=== PATIENT | male | born 1970 | race Caucasian/White ===

== ENCOUNTER 2017-10-30 22:44 | Emergency (ER) | payer OTHER ==
[2017-10-30 23:19] LABS: PLATELET COUNT 333 10^3/uL (150-400)
--- NOTE | 2017-10-31 00:04 | EDPHY ---
General - History Smoking Status: Never smoked Time Seen by Provider: 10/30/17 23:49 Narrative: CHIEF COMPLAINT: M1 HISTORY OF PRESENT ILLNESS: Patient presents on M1 hold from the walk-in crisis Center from [facility]. He is here on an M1 hold due to reported suicidal ideation. The M1 documents that he was allegedly suicidal with a plan of "drinking myself to ." Patient adamantly denies this. He does states he has "been going through some crises," but denies feeling suicidal or homicidal. He denies any history of such or any formal mental health diagnoses. He does admit to going to [facility] at the request of his ex but will not divulge any further information. No obtainable associated complaints or modifying factors. PSYCHIATRIC DIAGNOSES: Denies PRIOR PSYCHIATRIC EVALUATIONS: Denies M1/DETAINER: [facility] walk in crisis [place] just prior to arrival REVIEW OF SYSTEMS: Ten systems reviewed and are negative unless otherwise noted in the HPI EXAMINATION General Appearance: Alert, no distress. Well-developed well-nourished. Head: normocephalic, atraumatic Eyes: Pupils equal and round, no conjunctival pallor or injection ENT, Mouth: Mucous membranes moist Neck: Normal inspection, supple, non-tender Respiratory: Lungs are clear to auscultation Cardiovascular: Regular rate and rhythm Gastrointestinal: Abdomen is soft and nontender Back: non-tender, no bony abnormalities Neurological: GCS 15. A&O, nonfocal, normal gait Skin: Warm and dry, no rash Extremities: Nontender, no pedal edema Psychiatric: Anxious Mood and affect. Denies suicidal ideation. Denies homicidal ideation. Does admit to alcohol use. Denies illicit substance use DIFFERENTIAL DIAGNOSES: Including but not limited to suicidal ideation, depression, acute on toxication , polysubstance abuse MDM: 11:50 p.m. M1 hold due to suicidal ideation with plan of alcohol ingestion per M1. The patient denies this. There is documentation that he had a plan of doing so, thus we will convince medical clearance. He has thus far cooperative. He is in no acute distress. He does admit to alcohol ingestion but denies any illicit substance use. The serum laboratory studies are pending. He has not yet provided a urine sample. 12:30 a.m. I discussed case with Dr. Mc. She will assume care the patient at this time. He is pending medical clearance and will likely be in the emergency department till the morning for psychiatric evaluation. Thus far he is resting comfortably in no acute distress and very cooperative to this point SUPERVISION: Patient was independently examined, but I discussed the case with my secondary supervising physician Dr. Mc (MagenChuy) PHYSICIAN DOCUMENTATION: The patient was evaluated and managed by the Physician Camp Cook. My co- signature indicates that I have reviewed this chart and I agree with the findings and plan of care as documented. I am the secondary supervising physician. 7:30 a.m., patient was stable throughout my shift. He is awaiting mental health evaluation pending his sobriety. (Stephanie Mc) Medical Decision Making: I assumed care of the patient at 7 o'clock in the morning pending psychiatric disposition. 9:00 a.m.: The patient has been evaluated by the psychiatric team at [facility] and the case discussed with Dr. Levon Wallace. They are recommending that the mental health hold the vacated as the patient currently contracts for safety. His primary issue is one surrounding his alcohol dependence. The patient will be discharged home with resources. He is given customary aftercare instructions and return precautions. (Danyel Martin) - Objective Vital Signs: Initial Vital Signs Temperature (C) 36.7 C 10/30/17 23:42 Heart Rate 111 H 10/30/17 23:42 Respiratory Rate 20 10/30/17 23:42 Blood Pressure 146/102 H 10/30/17 23:42 O2 Sat (%) 94 10/30/17 23:42 O2 Delivery Mode Room Air Allergies/Adverse Reactions: No Known Allergies Allergy (Unverified 10/30/17 23:42) Home Medications: Medication Instructions Recorded NK [No Known Home Meds] 10/30/17 Laboratory Results: Laboratory Results 10/30/17 23:05 10/30/17 23:05 10/31/17 10/30/17 10/30/17 00:05 23:05 23:05 WBC 9.39 10^3/uL 10^3/uL (3.80-9.50) RBC 5.45 10^6/uL 10^6/uL (4.40-6.38) Hgb 17.6 g/dL H g/dL (13.7-17.5) Hct 50.7 % % (40.0-51.0) MCV 93.0 fL fL (81.5-99.8) MCH 32.3 pg pg (27.9-34.1) MCHC 34.7 g/dL g/dL (32.4-36.7) RDW 11.9 % % (11.5-15.2) Plt Count 333 10^3/uL 10^3/uL (150-400) MPV 9.4 fL fL (8.7-11.7) Neut % (Auto) 44.2 % % (39.3-74.2) Lymph % (Auto) 44.7 % % (15.0-45.0) Alfalfa % (Auto) 6.5 % % (4.5-13.0) Eos % (Auto) 3.6 % % (0.6-7.6) Baso % (Auto) 0.7 % % (0.3-1.7) Nucleat RBC Rel Count 0.0 % % (0.0-0.2) Absolute Neuts (auto) 4.14 10^3/uL 10^3/uL (1.70-6.50) Absolute Lymphs (auto) 4.20 10^3/uL H 10^3/uL (1.00-3.00) Absolute Monos (auto) 0.61 10^3/uL 10^3/uL (0.30-0.80) Absolute Eos (auto) 0.34 10^3/uL 10^3/uL (0.03-0.40) Absolute Basos (auto) 0.07 10^3/uL 10^3/uL (0.02-0.10) Absolute Nucleated RBC 0.00 10^3/uL 10^3/uL (0-0.01) Immature Gran % 0.3 % % (0.0-1.1) Immature Gran # 0.03 10^3/uL 10^3/uL (0.00-0.10) Sodium 141 mEq/L mEq/L (135-145) Potassium 3.9 mEq/L mEq/L (3.3-5.0) Chloride 97 mEq/L mEq/L (97-110) Carbon Dioxide 24 mEq/l mEq/l (22-31) Anion Gap 20 mEq/L H mEq/L (8-16) BUN 17 mg/dL mg/dL (7-23) Creatinine 1.1 mg/dL mg/dL (0.7-1.3) Estimated GFR > 60 Glucose 102 mg/dL H mg/dL (70-100) Calcium 9.7 mg/dL mg/dL (8.5-10.4) Salicylates < 1.0 mg/dL L mg/dL (2.0-20.0) Urine Opiates Screen NEGATIVE (NEGATIVE) Acetaminophen < 10 mcg/mL L mcg/mL (10-30) Urine Barbiturates NEGATIVE (NEGATIVE) Ur Phencyclidine Scrn NEGATIVE (NEGATIVE) Ur Amphetamine Screen NEGATIVE (NEGATIVE) U Benzodiazepines Scrn NEGATIVE (NEGATIVE) Urine Cocaine Screen NEGATIVE (NEGATIVE) U Marijuana (THC) Screen NEGATIVE (NEGATIVE) Ethyl Alcohol 321 mg/dL H mg/dL (0-10) Medications Given: Discontinued Medications Chlordiazepoxide HCl (Librium) 50 mg PO EDNOW ONE Stop: 10/31/17 02:02 Last Admin: 10/31/17 02:16 Dose: Not Given Lorazepam (Ativan) 1 mg PO EDNOW ONE Stop: 10/31/17 02:01 Last Admin: 10/31/17 02:16 Dose: 1 mg Departure - Departure Disposition: Home, Routine, Self-Care Clinical Impression: Alcoholism, Depression Condition: Fair Instructions: Abuse of Alcohol (ED) Additional Instructions: 1. Please follow-up with the mental health resources provided in the ED today. 2. [facility] does operate a 25/12 psychiatric crisis unit located at [facility]. The telephone number for the 24 hour crisis center is [phone]. 3. Please return to the ED if you are feeling suicidal, having thoughts of harming yourself/others or should you feel unsafe or have worsening symptoms. 4. You have been also given the contact information for the [facility]. They do offer a 24 hr a day walk-in clinic for alcohol withdrawal and counseling. Referrals: [facility] [Outside] - As per Instructions [facility] [[facility]inic[facility] - As per Instructions
[2017-10-31] MEDS ORDERED: LORazepam 1 MG TAB PO ONE (02:00)
[2017-10-31] MEDS ORDERED: chlordiazePOXIDE 25 MG CAP PO ONE (02:01)
[2017-10-31 09:05] VITALS: BP 139/98
== END 2017-10-31 09:04 | disposition home or self-care (01) ==
LOC: MERGE 22:44
DX: F32.9 Major depressive disorder, single episode, unspecified (principal); F10.20 Alcohol dependence, uncomplicated
CPT/HCPCS: 80305; G0480